=== PATIENT | male | born 1945 ===

== ENCOUNTER 2023-09-27 14:13 | Outpatient (CLI) | payer MEDICARE ==
--- NOTE | 2023-09-27 17:35 | XRAY Report ---
PROCEDURE: Knee 3V RT INDICATIONS: RIGHT KNEE PAIN TECHNIQUE: 3 views of the knee(s) were acquired. COMPARISON: None. FINDINGS: Bones: No fractures or dislocations. Moderate medial compartment joint space loss and tiny marginal spurs. Enthesopathy at the distal quadriceps and patellar tendon insertion sites. No suspicious bony lesions. Soft tissues: Small knee joint effusion. No suspicious soft tissue calcifications or masses. Mild v ascular calcification. IMPRESSION: 1. Medial compartment arthritic change. 2. Enthesopathy anteriorly. 3. Small knee joint effusion may indicate further internal arrangement. Consider MRI. Reviewed by: Sarah Dominguez MD on 09/27/2023 5:33 PM PST Approved by: Sarah Dominguez MD on 09/27/2023 5:33 PM PST Station ID: [id number]
== END 2023-09-27 23:59 | disposition home or self-care (01) ==
LOC: DI.S 14:13
PROVIDERS: ATTEND Registered Nurse
DX: M17.11 Unilateral primary osteoarthritis, right knee (principal); M76.9 Unspecified enthesopathy, lower limb, excluding foot; M25.461 Effusion, right knee

== ENCOUNTER 2023-10-08 16:01 | Outpatient (CLI) | payer MEDICARE ==
--- NOTE | 2023-10-09 19:22 | Ultrasound Report ---
PROCEDURE: Duplex Ext Veins Right INDICATIONS: RIGHT CALF PAIN. History of injury one month ago. TECHNIQUE: Real-time imaging, as well as color and pulse Doppler interrogation, were performed of the lower extr emity deep veins from the inguinal ligament to the popliteal fossa. Attempted visualization of the ca lf veins was performed. COMPARISON: None. FINDINGS: The deep veins are normally compressible, and free of intraluminal thrombus. Color and pu lse Doppler demonstrate normal phasic intraluminal flow. There is normal augmentation response to di stal compression maneuver. At site corresponding to injury and bruising, there is a small complex fluid collection measuring 4.2 x 0.6 x 2.7 cm with no internal vascularity. IMPRESSION: 1. No deep venous thrombosis of the visualized lower extremity. 2. At site corresponding to injury and bruising, there is a small complex fluid collection measuring 4.2 x 0.6 x 2.7 cm with no internal vascularity, likely an evolving hematoma. Reviewed by: Sigifredo Figueroa MD on 10/09/2023 7:21 PM PST Approved by: Sigifredo Figueroa MD on 10/09/2023 7:21 PM PST Station ID: [id number]
== END 2023-10-08 16:02 | disposition home or self-care (01) ==
LOC: DI 16:01
PROVIDERS: ATTEND Registered Nurse
DX: M79.661 Pain in right lower leg (principal); R60.0 Localized edema; M25.561 Pain in right knee

== ENCOUNTER 2023-10-15 07:08 | Outpatient (CLI) | payer MEDICARE ==
--- NOTE | 2023-10-15 12:29 | MRI Report ---
PROCEDURE: Knee RT WO INDICATIONS: EDEMA, PAIN RT KNEE TECHNIQUE: Noncontrast sagittal PD fast spin echo and T2 fast spin echo with fat saturation, sagittal 3-D spoile d GE with fat saturation; coronal T1 spin echo and PD fast spin echo with fat saturation, and axial P D fast spin echo with fat saturation through the knee. COMPARISON: Right knee radiographs 09/27/2023 FINDINGS: Image quality: Excellent. Anterior cruciate ligament: Intact. Posterior cruciate ligament: Intact. Medial collateral ligament: Intact. Lateral collateral ligament: Intact. Medial meniscus: There is radial tearing of the medial meniscus near the posterior root attachment. Horizontal oblique tearing is seen at the posterior horn and body extending and interpreted to the ar ticular surface. A small 3 mm pulmonary meniscal cyst is seen along the nonarticular margin. Lateral meniscus: Intact. Medial and lateral tendons: The semimembranosus tendon insertions appear intact. Visualized portion s of the pes anserinus tendons appear normal. The popliteus tendon appears intact. Iliotibial band appears normal. Anterior structures: There is mild patellar tendinosis. The distal quadriceps tendon is intact. No p atellar subluxation. No femoral trochlear dysplasia or ventral trochlear prominence. No edema in th e infrapatellar fat pad. Bones: There is a small subchondral linear hypointensity at the weightbearing portion of the medial tibial plateau measuring 9 x 11 mm, consistent with a nondepressed subchondral fracture. Moderate karina rounding osseous edema is present. Medial femorotibial cartilage: Full thickness cartilage loss is seen at the central to posterior oliva ghtbearing portion of the medial femoral condyle and the central weightbearing portion of the medial tibial plateau. Lateral femorotibial cartilage: No focal cartilage defect. Patellofemoral cartilage: No focal cartilage defect. Soft tissues: There is a medium-sized joint effusion. There is a trace medial popliteal cyst. A sma ll amount of fluid is seen tracking inferiorly along the popliteus tendon sheath. Nonspecific subcuta neous edema is seen in the anterior and lateral aspect of the knee. The musculature surrounding the k nee is normal in bulk. IMPRESSION: 1.Small nondepressed subchondral fracture at the central portion of the medial tibial plateau with bruno rrounding osseous edema. 2.Complex tearing of the medial meniscus with a radial component at the posterior root attachment and a horizontal oblique component at the posterior horn and body extending to the tibial articular surf cam[place]. A 3 mm parameniscal cyst is present. 3.Moderately sized areas of full-thickness cartilage loss in the weightbearing portion of the medial femorotibial compartment. 4.Mild patellar tendinosis. 5.Moderate joint effusion. Reviewed by: Jae Porter MD on 10/15/2023 12:28 PM PST Approved by: Jae Porter MD on 10/15/2023 12:28 PM PST Station ID: [id number]
== END 2023-10-15 07:09 | disposition home or self-care (01) ==
LOC: DI 07:08
PROVIDERS: ATTEND Registered Nurse
DX: S82.141A Displaced bicondylar fracture of right tibia, initial encounter for closed fracture (principal); S83.231A Complex tear of medial meniscus, current injury, right knee, initial encounter; M23.003 Cystic meniscus, unspecified medial meniscus, right knee; M94.261 Chondromalacia, right knee; M67.863 Other specified disorders of tendon, right knee; M25.461 Effusion, right knee

== ENCOUNTER 2024-03-01 08:00 | Outpatient (CLI) | payer MEDICARE | END 2024-03-01 23:59 | disposition home or self-care (01) | LOC: LAB.N 08:00 | PROVIDERS: ATTEND Nurse Practitioner | DX: N39.0 Urinary tract infection, site not specified (principal) | CPT/HCPCS: 87086; 87181 ==